=== PATIENT | female | born 1980 | race Caucasian/White ===

== ENCOUNTER → 2020-08-19 09:08 | Outpatient (BNVA) | payer OTHER, SELFPAY | PROVIDERS: PCP Internal Medicine; Referring Provider Internal Medicine; Visit Provider Dietitian, Registered | DX: Z76.89 Persons encountering health services in other specified circumstances (principal) ==

== ENCOUNTER → 2020-08-30 10:35 | Outpatient (BNVA) | payer OTHER, SELFPAY | PROVIDERS: PCP Internal Medicine; Visit Provider Anesthesiology | DX: Z76.89 Persons encountering health services in other specified circumstances (principal) ==

== ENCOUNTER 2020-09-02 11:26 | Emergency (ER) | payer OTHER, SELFPAY ==
--- NOTE | 2020-09-02 13:38 | ED_ITS ---
HPI - Abdominal Pain General Chief Complaint: Abdominal Pain Stated Complaint: abd pain Time Seen by Provider: 09/02/20 13:38 Source: patient Mode of arrival: ambulatory Limitations: no limitations History of Present Illness HPI narrative: 40 y/o female with history of obesity and hyperlipidemia presenting with acute onset of right sided abdominal pain that started last night as she was getting ready to go to bed. It is sharp in nature, starts in RUQ and radiates to her entire right side of her abdomen. Worse with movement and palpation. Admits to nausea but no vomiting, diarrhea, fever, chills, urinary symptoms. No sick contacts. MD elicited complaint: abdominal pain Pertinent past history: none Onset (ago): day(s) (1) Pain Consistency: constant Location: RUQ and RLQ Severity: moderate Pain scale (0-10): 8 Quality: stabbing and sharp Radiation: RLQ Exacerbating factors: movement Relieving factors: nothing Associated symptoms: nausea Related Data Date of Last Menstrual Period: 08/24/20 Patient : No Home Medications Medication Instructions Recorded Confirmed simvastatin 10 mg tablet 10 mg PO DAILY 08/30/20 Previous Rx's Medication Instructions Recorded famotidine 40 mg tablet 40 mg PO BID 30 Days #60 tab 08/06/20 Allergies Allergy/AdvReac Type Severity Reaction Status Date / Time Penicillins Allergy Mild HIVES Verified 09/02/20 15:04 gabapentin Allergy Unknown stomach Verified 05/31/20 00:00 upset Sulfa (Sulfonamide Allergy Unknown hives Verified 05/31/20 00:00 Antibiotics) Hydrocodone-Acetaminophen Allergy Unknown Unknown Uncoded 08/30/20 10:59 Review of Systems Review of Systems Constitutional: No Fever, No Chills ENT/Mouth: No sore throat, No Rhinorrhea, No Swallowing Difficulty Eyes: No Eye Pain, No Swelling, No Redness Cardiovascular: No Chest Pain, No SOB, No Orthopnea, No Edema Respiratory: No Cough, No Sputum, No Wheezing, No dyspnea Gastrointestinal: + Nausea, No Vomiting, No Diarrhea, + abdominal Pain, No Hematochezia, No Melena Genitourinary: No Dysuria, No Urinary Frequency, No Hematuria Musculoskeletal: No joint pain, No Myalgias Skin: No Skin Lesions, No rash Neuro: No Weakness, No Numbness, No Dizziness, No Headache Psych: + Anxiety/Panic, No Depression Heme/Lymph: No Bruising, No Lymphadenopathy Endocrine: No Polyuria, No Polydipsia Physical Exam Vital Signs: Vital Signs: Vital Signs Temp Pulse Resp BP Pulse Ox 09/02/20 15:07 79 15 115/65 98 09/02/20 14:00 86 15 130/74 09/02/20 13:55 97.6 F 88 14 130/74 96 Body Mass Index 44.5 Appearance: Alert. Oriented X3. No acute distress, appears uncomfortable. Speaking in full sentences. Eyes: Pupils equal, round and reactive to light. ENT: Pharynx normal. Neck: Normal inspection. Neck supple. CVS: Normal heart rate and rhythm. Pulses normal. Respiratory: No respiratory distress. Breath sounds normal. Abdomen: obese, soft, RUQ tenderness with rebound as well as RLQ tenderness to deep palpation with guarding. +BS x4. Skin: Skin warm and dry. Normal skin color. Normal skin turgor. No rashes. Extremities: No lower extremity edema. Neuro: Oriented X 3. No motor deficit. No sensory deficit. Course Course Course Narrative: 40 y/o female here with right sided abd pain. Concern for cholecystitis, biliary colic, appendicitis, colitis. Doubt ectopic , bowel obstruction, bowel perforation. Lab and CT scan pending. Patient reports pain 8/10 but declining morphine at this time. Accepting to Toradol and IVF. Reevaluation(s) Reevaluation #1: Patient continues to report 8/[address] scan shows stable right sided ovarian cyst 7.9x4.9x4.5cm. Given continued pain and concern for possible torsion, will get pelvic U/S with doppler. She has an outpatient U/S appointment with her [employer] [facility]ENDANT tomorrow at [facility] with plan for cyst removal in October 2020. Patient agreeable to U/S now. MDM - Abdominal Pain Differential Diagnosis Differential diagnosis: Likely abdominal pain, acute appendicitis, calculus of kidney, diverticulitis, endometriosis, gastroenteritis, gastritis, ovarian cyst, pancreatitis, peptic ulcer disease, renal colic and small bowel obstruction Lab Data Result diagrams: 09/02/20 14:15 09/02/20 14:15 Labs: Lab Results 09/02/20 09/02/20 09/02/20 Range/Units 14:15 14:15 14:15 WBC 7.6 (4.8-10.8) X10*3/uL RBC 4.49 (4.20-5.50) X10*6/uL Hgb 11.5 L (12.0-16.0) g/dl Hct 37.3 (37-47) % MCV 83.1 (80-98) fL MCH 25.6 L (27.0-33.0) pg MCHC 30.8 L (31.0-35.0) g/dl RDW 14.5 (11.0-16.0) % Plt Count 270 (160-400) X10*3/uL MPV 11.1 (9.4-12.3) fL Immature Gran % (Auto) 0.3 (0.0-0.4) % Neut % (Auto) 68.9 (45-73) % Lymph % (Auto) 21.8 (20-40) % Miller % (Auto) 6.6 (2-11) % Eos % (Auto) 2.1 (0-4) % Baso % (Auto) 0.3 (0-2) % Lymph # (Auto) 1.7 (1.2-4.9) X10*3/uL Miller # (Auto) 0.5 (0.1-1.2) X10*3/uL Eos # (Auto) 0.2 (0.0-0.4) X10*3/uL Baso # (Auto) 0.0 (0.0-0.2) X10*3/uL Abs Immat Gran (auto) 0.02 (0.00-0.03) X10*3/uL Absolute Neuts (auto) 5.2 (2.0-8.3) X10*3/uL Absolute Nucleated RBC 0.000 (0.0-0.012) X10*3/uL Nucleated RBC % (auto) 0.0 (0.0-0.2) /100WBC Sodium 140 (135-145) mmol/L Potassium 4.2 (3.3-5.1) mmol/l Chloride 103 (96-108) mmol/L Carbon Dioxide 29 (22-29) mmol/L Anion Gap 12 (12-20) BUN 8 L (9-16) mg/dL Creatinine 0.61 (0.5-1.4) mg/dL Estim Creat Clear Calc 134.2 Estimated GFR > 60 Random Glucose 77 (60-115) mg/dL Lactic Acid 0.8 (0.5-2.0) mmol/L Calcium 8.7 (8.4-10.2) mg/dL Magnesium 2.0 (1.6-2.6) mg/dL Total Bilirubin 0.5 (0.0-1.0) mg/dL Direct Bilirubin 0.2 (0.0-0.5) mg/dL AST 17 (5-31) U/L ALT 25 (0-31) U/L Alkaline Phosphatase 124 H (39-117) U/L Total Protein 7.2 (6.5-8.0) g/dL Albumin 4.1 (3.5-5.0) g/dL Lipase 6 L (8-78) U/L Beta HCG, Quant < 2 mIU/mL Urine Color Urine Appearance Urine pH (5.0-8.0) Ur Specific Cope (1.005-1.025) Urine Protein (NEG-TRACE) MG/DL Urine Glucose (UA) (NEG) MG/DL Urine Ketones (NEG) MG/DL Urine Blood (NEG) Urine Nitrite (NEG) Ur Leukocyte Esterase (NEG) 09/02/20 Range/Units 16:50 WBC (4.8-10.8) X10*3/uL RBC (4.20-5.50) X10*6/uL Hgb (12.0-16.0) g/dl Hct (37-47) % MCV (80-98) fL MCH (27.0-33.0) pg MCHC (31.0-35.0) g/dl RDW (11.0-16.0) % Plt Count (160-400) X10*3/uL MPV (9.4-12.3) fL Immature Gran % (Auto) (0.0-0.4) % Neut % (Auto) (45-73) % Lymph % (Auto) (20-40) % Miller % (Auto) (2-11) % Eos % (Auto) (0-4) % Baso % (Auto) (0-2) % Lymph # (Auto) (1.2-4.9) X10*3/uL Miller # (Auto) (0.1-1.2) X10*3/uL Eos # (Auto) (0.0-0.4) X10*3/uL Baso # (Auto) (0.0-0.2) X10*3/uL Abs Immat Gran (auto) (0.00-0.03) X10*3/uL Absolute Neuts (auto) (2.0-8.3) X10*3/uL Absolute Nucleated RBC (0.0-0.012) X10*3/uL Nucleated RBC % (auto) (0.0-0.2) /100WBC Sodium (135-145) mmol/L Potassium (3.3-5.1) mmol/l Chloride (96-108) mmol/L Carbon Dioxide (22-29) mmol/L Anion Gap (12-20) BUN (9-16) mg/dL Creatinine (0.5-1.4) mg/dL Estim Creat Clear Calc Estimated GFR Random Glucose (60-115) mg/dL Lactic Acid (0.5-2.0) mmol/L Calcium (8.4-10.2) mg/dL Magnesium (1.6-2.6) mg/dL Total Bilirubin (0.0-1.0) mg/dL Direct Bilirubin (0.0-0.5) mg/dL AST (5-31) U/L ALT (0-31) U/L Alkaline Phosphatase (39-117) U/L Total Protein (6.5-8.0) g/dL Albumin (3.5-5.0) g/dL Lipase (8-78) U/L Beta HCG, Quant mIU/mL Urine Color YELLOW Urine Appearance HAZY Urine pH 6.0 (5.0-8.0) Ur Specific Cope <= 1.005 (1.005-1.025) Urine Protein NEG (NEG-TRACE) MG/DL Urine Glucose (UA) NEG (NEG) MG/DL Urine Ketones NEG (NEG) MG/DL Urine Blood NEG (NEG) Urine Nitrite NEG (NEG) Ur Leukocyte Esterase TRACE H (NEG) Discharge Plan Discharge Prescriptions: No Action famotidine 40 mg tablet 40 mg PO BID 30 Days Qty: 60 RF: 1 [facility] Past Medical History Medical History High cholesterol Date of Last Menstrual Period: 08/24/20 Social History Social History Smoking Status: Never smoker Use of substances other than those prescribed or required for medical reasons: No Advance Directives: No Advance Directives Information Provided: No
--- NOTE | 2020-09-02 13:48 | CT_ITS ---
EXAMINATION: CT ABDOMEN AND PELVIS WITH CONTRAST CLINICAL INFORMATION: Right-sided abdominal pain. COMPARISON: CT scan abdomen pelvis 04/02/2020 TECHNIQUE: Multidetector volumetric images were obtained from the superior aspect of the liver through the pubic symphysis following administration 85 mL ofOmnipaque 350 intravenous contrast. Sagittal and coronal reformatted images were obtained on the technologist's workstation. Oral contrast: No This CT examination was performed using dose optimization techniques as appropriate, variously including the following: *Automated exposure control *Adjustment of mA and/or kV according to patient size (this includes techniques or standardized protocols for targeted exams where dose is matched to indication/reason for exam; i.e. extremities or head) *Use of iterative reconstruction technique DLP: 996 mGy-cm FINDINGS: LUNG BASES: The visualized lung bases are unremarkable. LIVER, GALLBLADDER, AND BILIARY TREE: There is no focal liver lesion or intrahepatic bile duct dilatation. The right lobe of liver measures 18 cm superior inferior. The gallbladder is unremarkable with no evidence of radiopaque gallstones, gallbladder wall thickening, or obvious pericholecystic inflammatory changes. PANCREAS: Unremarkable. SPLEEN: Unremarkable. ADRENAL GLANDS: Unremarkable. KIDNEYS AND URETERS: The kidneys are normal in size, shape, and attenuation. No hydronephrosis, hydroureter, or calculi seen. No perinephric stranding. BLADDER: Unremarkable. GASTROINTESTINAL TRACT: There are scattered diverticula throughout the colon. The diverticula are most numerous at the sigmoid colon. There is no diverticulitis. There is no bowel wall thickening /edema. There is no bowel obstruction. There is a moderate volume of stool in the colon. The appendix is normal . The small bowel loops are unremarkable. The stomach is normal. There is no hiatal hernia. ABDOMINAL WALL: No significant hernia is appreciated. LYMPH NODES: Normal. VASCULAR: Unremarkable. PELVIC VISCERA: Uterus is anteverted. There is a right adnexal cyst measuring 7.6 x 4.9 x 4.5 cm. This is similar to prior CAT scan of abdomen pelvis of 04/02/2020. There is no calcification or evidence of solid mass. No inflammation of the adnexa. No fluid in the cul-de-sac. OSSEOUS STRUCTURES: Unremarkable. CT/CT abdomen pelvis w con IMPRESSION: 1. Stable right adnexal cyst unchanged since CAT scan 04/02/2020. 2. Diverticulosis of the colon. There is no acute abnormality of the bowel.
[2020-09-02 13:55] VITALS: BP 130/74; PULSE 88; RESP 14; TEMP 36.4; O2SAT 96
[2020-09-02 14:00] VITALS: BP 130/74; PULSE 86; RESP 15; BMI 44.5
[2020-09-02] MEDS: 0.9 % Sodium Chloride 1,000 ML 999 ML IVCONT (14:17)
[2020-09-02 14:25] LABS: MANUAL DIFF FLAG NO
[2020-09-02] MEDS: ondansetron HCL 4 MG/2 ML VIAL IVPUSH (14:26)
[2020-09-02 14:28] LABS: Basophils Percent Auto 0.3 % (0-2); Eosinophils Absolute Auto 0.2 X10*3/uL (0.0-0.4); Eosinophils Percent Auto 2.1 % (0-4); Hematocrit 37.3 % (37-47); Hemoglobin 11.5 g/dl (12.0-16.0); Imm Gran Abs Auto 0.02 X10*3/uL (0.00-0.03); Imm Gran Pct Auto 0.3 % (0.0-0.4); Lymphocytes Absolute Auto 1.7 X10*3/uL (1.2-4.9); Lymphocytes Percent Auto 21.8 % (20-40); Mean Corpuscular HGB Conc 30.8 g/dl (31.0-35.0); Mean Corpuscular Hemoglobin 25.6 pg (27.0-33.0); Mean Corpuscular Volume 83.1 fL (80-98); Mean Platelet Volume 11.1 fL (9.4-12.3); Monocytes Absolute Auto 0.5 X10*3/uL (0.1-1.2); Monocytes Percent Auto 6.6 % (2-11); Neutrophils Absolute Auto 5.2 X10*3/uL (2.0-8.3); Neutrophils Percent Auto 68.9 % (45-73); Platelet Count 270 X10*3/uL (160-400); Red Blood Count 4.49 X10*6/uL (4.20-5.50); Red Cell Distribution Width 14.5 % (11.0-16.0); White Blood Count 7.6 X10*3/uL (4.8-10.8)
[2020-09-02] MEDS: Ketorolac Tromethamine 30 MG/ML VIAL IVPUSH (14:38)
[2020-09-02 14:42] LABS: Lactic Acid 0.8 mmol/L (0.5-2.0)
[2020-09-02 14:48] LABS: Alanine Aminotransferase 25 U/L (0-31); Albumin Level 4.1 g/dL (3.5-5.0); Alkaline Phosphatase 124 U/L (39-117); Anion Gap 12 (12-20); Aspartate Amino Transferase 17 U/L (5-31); Bilirubin Direct 0.2 mg/dL (0.0-0.5); Bilirubin Total 0.5 mg/dL (0.0-1.0); Blood Urea Nitrogen 8 mg/dL (9-16); Calcium 8.7 mg/dL (8.4-10.2); Carbon Dioxide 29 mmol/L (22-29); Chloride 103 mmol/L (96-108); Creatinine Clr Calc Pharmacy 134.2; Estimated Glomerular Filt Rate > 60; Glucose Random 77 mg/dL (60-115); Lipase 6 U/L (8-78); Potassium 4.2 mmol/l (3.3-5.1); Sodium 140 mmol/L (135-145); Total Protein 7.2 g/dL (6.5-8.0)
[2020-09-02 14:54] LABS: HCG Quantitative < 2 mIU/mL
[2020-09-02 15:07] VITALS: BP 115/65; PULSE 79; RESP 15; O2SAT 98
[2020-09-02] MEDS: iohexoL 350 MG/ML 100 ML INFUS..BTL IV (16:07)
--- NOTE | 2020-09-02 16:48 | US_ITS ---
EXAMINATION: ULTRASOUND PELVIC, COMPLETE CLINICAL INFORMATION: 40-year-old female with ovarian cyst seen on prior CT COMPARISON: CT of the abdomen and pelvis 09/02/2020 and MRI of the pelvis 01/01/2020 TECHNIQUE: Transabdominal and transvaginal imaging was performed. Transvaginal imaging was performed for further evaluation of the endometrium and adnexa. Color and spectral Doppler imaging of both ovaries was performed. FINDINGS: The uterus is of normal size and echogenicity measuring 9.6 x 5 x 4.7 cm. There is a small hypoechoic myometrial fibroid in the right upper uterus that measures 1 x 0.6 x 0.7 cm there are nabothian cysts within the cervix. A regular homogeneous endometrium is identified measuring 1.3 cm. Both ovaries are of normal size and echogenicity. The right ovary measures 3.6 x 2 x 1.8 cm for a volume of 7 mL. Directly adjacent to the right ovary is a simple appearing cyst that measures 5.6 x 4.8 x 5.3 cm. The left ovary measures 3.1 x 1.4 x 1.8 cm for a volume of 4 mL. PELVIC DOPPLER: Normal color and spectral Doppler flow is demonstrated in the bilateral ovaries with arterial and venous waveforms identified. There is no pelvic free fluid. US/US pelvic ovarian doppler IMPRESSION: 5.6 x 4.8 x 5.3 cm simple appearing cyst adjacent to the right ovary, that may be ovarian or paraovarian in nature. Findings are overall similar to the previous CT and MRI of the pelvis. Normal appearance of the bilateral ovaries with intact arterial and venous flow. 1 cm myometrial fibroid in the right upper uterus.
[2020-09-02 17:05] LABS: Glucose Urine UA NEG (NEG); Leukocyte Esterase Urine TRACE (NEG); Nitrite Urine NEG (NEG); Specific Gravity - Urine <= 1.005 (1.005-1.025); Urine Blood NEG (NEG); Urine Ketones NEG (NEG); Urine Protein NEG (NEG-TRACE)
[2020-09-02 17:08] VITALS: BP 110/61; PULSE 78; RESP 15; O2SAT 98
[2020-09-02 17:08] LABS: Appearance Urine HAZY; Color Urine YELLOW
--- NOTE | 2020-09-02 17:12 | US_ITS ---
EXAMINATION: ULTRASOUND PELVIC, COMPLETE CLINICAL INFORMATION: 40-year-old female with ovarian cyst seen on prior CT COMPARISON: CT of the abdomen and pelvis 09/02/2020 and MRI of the pelvis 01/01/2020 TECHNIQUE: Transabdominal and transvaginal imaging was performed. Transvaginal imaging was performed for further evaluation of the endometrium and adnexa. Color and spectral Doppler imaging of both ovaries was performed. FINDINGS: The uterus is of normal size and echogenicity measuring 9.6 x 5 x 4.7 cm. There is a small hypoechoic myometrial fibroid in the right upper uterus that measures 1 x 0.6 x 0.7 cm there are nabothian cysts within the cervix. A regular homogeneous endometrium is identified measuring 1.3 cm. Both ovaries are of normal size and echogenicity. The right ovary measures 3.6 x 2 x 1.8 cm for a volume of 7 mL. Directly adjacent to the right ovary is a simple appearing cyst that measures 5.6 x 4.8 x 5.3 cm. The left ovary measures 3.1 x 1.4 x 1.8 cm for a volume of 4 mL. PELVIC DOPPLER: Normal color and spectral Doppler flow is demonstrated in the bilateral ovaries with arterial and venous waveforms identified. There is no pelvic free fluid. US/US transvaginal IMPRESSION: 5.6 x 4.8 x 5.3 cm simple appearing cyst adjacent to the right ovary, that may be ovarian or paraovarian in nature. Findings are overall similar to the previous CT and MRI of the pelvis. Normal appearance of the bilateral ovaries with intact arterial and venous flow. 1 cm myometrial fibroid in the right upper uterus.
[2020-09-02 18:12] LABS: RBC Urine 0-2 /HPF (0); Squamous Epithelial Cell Urine 1+ /LPF
[2020-09-02 18:42] VITALS: BP 109/59; PULSE 69; RESP 14
--- NOTE | 2020-09-02 18:44 | PC.NURSE ---
RE EVALUATED BY MARCOS VILLARREAL
[2020-09-02] MEDS: Ketorolac Tromethamine 60 MG/2 ML VIAL IM (19:09)
== END 2020-09-02 19:35 | disposition home or self-care (01) ==
PROVIDERS: Physician Assistant; Emergency Provider Emergency Medicine; PCP Internal Medicine
DX: R10.11 Right upper quadrant pain (principal); R10.2 Pelvic and perineal pain
CPT/HCPCS: 36415; 74177; 76830; 76856; 80048; 80076; 81001; 81003; 83605; 83690; 83735; 84702; 85025; 87086; 87147; 93975; 96361; 96372; 96374; 96375; 99284; J1885; J2405; Q9967

== ENCOUNTER → 2020-09-17 14:16 | Outpatient (BNVA) | payer OTHER, SELFPAY | PROVIDERS: PCP Internal Medicine; Referring Provider Internal Medicine; Visit Provider Internal Medicine Gastroenterology | DX: R10.33 Periumbilical pain (principal) | CPT/HCPCS: 99212 ==

== ENCOUNTER 2020-10-15 09:29 | Outpatient (REF) | payer OTHER, SELFPAY ==
--- NOTE | 2020-10-15 09:33 | MR_ITS ---
EXAMINATION: MR ENTEROGRAPHY CLINICAL INFORMATION: Check for Crohn's or other enteropathy. COMPARISON: Previous CT of the abdomen and pelvis August 2020 and MRI of the pelvis December 2019 TECHNIQUE: Sagittal, axial and coronal sequences through the abdomen and pelvis following 3 bottles of 17 ounce oral Breeza contrast and 10 mL intravenous Gadavist contrast. FINDINGS: The lung bases are clear. There is mild fatty infiltration of the liver. There is a 7 mm lesion high in the right lobe of the liver. This is low signal on T1 and high signal on T2-weighted sequences and demonstrates homogeneous enhancement. This may represent a small hemangioma. No other focal liver lesion is seen. The liver is normal in size and shape. The gallbladder is normal. There is no intrahepatic or extrahepatic biliary duct dilatation. The pancreas is normal. The spleen is normal. The adrenal glands and kidneys are normal. The bladder is normal. The stomach is well distended and is normal appearing. Small bowel is normal appearing. No evidence of inflammatory bowel disease is seen. No wall thickening, dilatation, wall enhancement, abnormal vascularity, stricture, or fistula is seen There is mild diverticulosis of the colon. The colon is otherwise normal appearing. The rectum is normal appearing. The appendix is not identified. There is a 5.3 x 7.5 x 4.8 cm simple right pelvic cyst probably representing an adnexal cyst. This is similar to previous CT of the abdomen and pelvis August 2020. This is slightly increased in size from previous pelvic MRI December 2019 when this measured 3.5 x 5.8 x 4.4 cm. This appears to represent a simple cyst with no wall thickening, mural nodule or enhancement. 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 Left adnexa is unremarkable. There is increased sclerosis at the bilateral sacroiliac joints similar to previous exams. Review at bone windows is otherwise unremarkable. MR/MR abdomen wo/w con IMPRESSION: Normal-appearing small bowel. Mild diverticulosis of the colon. 7 mm enhancing lesion high in the right lobe of the liver probably representing a hemangioma. 5.3 x 7.5 x 4.8 cm right adnexal cyst. Again, this is slightly increased in size from prior MRI December 2019.
== END 2020-10-15 09:30 | disposition home or self-care (01) ==
LOC: HO.MRI 09:29
PROVIDERS: Visit Provider Internal Medicine Gastroenterology
DX: R10.33 Periumbilical pain (principal)
CPT/HCPCS: 72197; 74183; A9585

== ENCOUNTER 2020-10-26 09:45 | Outpatient (REF) | payer OTHER, SELFPAY ==
[2020-10-26 11:20] LABS: Alanine Aminotransferase 21 U/L (0-31); Albumin Level 4.1 g/dL (3.5-5.0); Alkaline Phosphatase 123 U/L (39-117); Aspartate Amino Transferase 15 U/L (5-31); Bilirubin Direct < 0.2 mg/dL (0.0-0.5); Bilirubin Total 0.3 mg/dL (0.0-1.0); Cholesterol 209 mg/dL; HDL Cholesterol 43 mg/dL; LDL Cholesterol Calculated 136 mg/dl; Total Protein 7.4 g/dL (6.5-8.0); Triglycerides 151 mg/dL
[2020-10-26 11:21] LABS: C Reactive Protein 1.72 mg/dL (< or = 0.50)
[2020-10-26 11:37] LABS: Erythrocyte Sedimentation Rate 31 MM/HR (0-20)
[2020-10-28 16:23] LABS: Transglutaminase Ab IgG 5 U/mL; Transglutaminase IgA 1 U/mL
[2020-11-05 17:58] LABS: Histamine Plasma 3.3 ng/mL (< OR = 1.8)
== END 2020-10-26 09:46 | disposition home or self-care (01) ==
LOC: HO.LAB 09:45
PROVIDERS: Absent Provider Internal Medicine Gastroenterology; PCP Internal Medicine; Visit Provider Internal Medicine
DX: R10.33 Periumbilical pain (principal); E78.9 Disorder of lipoprotein metabolism, unspecified; K76.0 Fatty (change of) liver, not elsewhere classified
CPT/HCPCS: 36415; 80061; 80076; 83088; 83516; 83520; 85652; 86140

== ENCOUNTER → 2020-11-05 13:52 | Outpatient (BNVA) | payer OTHER, SELFPAY | PROVIDERS: PCP Internal Medicine; Referring Provider Internal Medicine; Visit Provider Dietitian, Registered | DX: Z76.89 Persons encountering health services in other specified circumstances (principal) ==

== ENCOUNTER 2020-11-08 18:05 | Outpatient (REF) | payer OTHER, SELFPAY ==
[2020-11-14 18:28] LABS: Calprotectin, Fecal 9 mcg/g
== END 2020-11-08 18:06 | disposition home or self-care (01) ==
LOC: HO.LNP 18:05
PROVIDERS: Visit Provider Internal Medicine Gastroenterology
DX: R10.33 Periumbilical pain (principal)
CPT/HCPCS: 83993

== ENCOUNTER 2020-11-15 13:45 | Outpatient (REF) | payer OTHER, SELFPAY | END 2020-11-15 13:46 | disposition home or self-care (01) | LOC: HO.LAB 13:45 | PROVIDERS: PCP Internal Medicine; Visit Provider Internal Medicine Gastroenterology | DX: D89.40 Mast cell activation, unspecified (principal) | CPT/HCPCS: 36415; 82785; 86003 ==

== ENCOUNTER 2020-11-17 15:41 | Outpatient (REF) | payer OTHER, SELFPAY ==
[2020-11-26 13:22] LABS: Creatinine 24Hr Urine 1166 mg/24 h; N-Methylhistamine, 24Hr Urine 96 mcg/g Cr (30-200); Total Volume 1850 mL
== END 2020-11-17 15:42 | disposition home or self-care (01) ==
LOC: HO.LNP 15:41
PROVIDERS: Visit Provider Internal Medicine Gastroenterology
DX: R10.33 Periumbilical pain (principal); D89.40 Mast cell activation, unspecified
CPT/HCPCS: 81050; 82542

== ENCOUNTER → 2020-12-20 15:01 | Outpatient (BNVA) | payer OTHER, SELFPAY | PROVIDERS: PCP Internal Medicine; Visit Provider Anesthesiology | DX: M54.5 Low back pain (principal); M54.2 Cervicalgia; M79.7 Fibromyalgia | CPT/HCPCS: Q3014 ==

== ENCOUNTER 2020-12-28 14:10 | Outpatient (REF) | payer OTHER, SELFPAY ==
--- NOTE | ~2020-12-28 | XR_ITS ---
EXAMINATION: CERVICAL AND LUMBAR SPINE. CLINICAL INFORMATION: Fibromyalgia. COMPARISON: Lumbar spine 12/16/2019 TECHNIQUE: 3 views lumbar spine and 6 view cervical spine. 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 There is maintained lumbar lordosis with vertebral heights and alignment is normal. No visible acute fracture or dislocation seen. The SI joints are symmetrical with mild sclerosis along the iliac aspect. No lytic process seen. There is mild deformity of the sacrococcygeal junction likely due to old injury Cervical spine There is mild straightening of cervical lordosis. The vertebral heights and alignment is stable. No visible acute fracture, dislocation or subluxation seen. The neural foramina are widely patent bilaterally and oblique views. The prevertebral and paravertebral soft tissues are normal. XR/XR lumbar spine 2-3V IMPRESSION: Mild straightening of lumbar lordosis with segmentation anomaly resulting 6 lumbar vertebrae. No acute fracture, dislocation or lytic process seen. However there is mild sclerosis along bilateral SI joints along the ileum side. Question bilateral sacroiliitis. Moderate straightening of cervical lordosis with no visible vertebral fracture or dislocation seen.
--- NOTE | ~2020-12-28 | XR_ITS ---
EXAMINATION: CERVICAL AND LUMBAR SPINE. CLINICAL INFORMATION: Fibromyalgia. COMPARISON: Lumbar spine 12/16/2019 TECHNIQUE: 3 views lumbar spine and 6 view cervical spine. 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 There is maintained lumbar lordosis with vertebral heights and alignment is normal. No visible acute fracture or dislocation seen. The SI joints are symmetrical with mild sclerosis along the iliac aspect. No lytic process seen. There is mild deformity of the sacrococcygeal junction likely due to old injury Cervical spine There is mild straightening of cervical lordosis. The vertebral heights and alignment is stable. No visible acute fracture, dislocation or subluxation seen. The neural foramina are widely patent bilaterally and oblique views. The prevertebral and paravertebral soft tissues are normal. XR/XR cervical spine 4V IMPRESSION: Mild straightening of lumbar lordosis with segmentation anomaly resulting 6 lumbar vertebrae. No acute fracture, dislocation or lytic process seen. However there is mild sclerosis along bilateral SI joints along the ileum side. Question bilateral sacroiliitis. Moderate straightening of cervical lordosis with no visible vertebral fracture or dislocation seen.
== END 2020-12-28 14:11 | disposition home or self-care (01) ==
LOC: HO.XRAY 14:10
PROVIDERS: PCP Internal Medicine; Visit Provider Anesthesiology
DX: M79.7 Fibromyalgia (principal); M54.5 Low back pain; M54.2 Cervicalgia
CPT/HCPCS: 72050; 72100; 99212

== ENCOUNTER → 2021-01-04 08:47 | Outpatient (BNVA) | payer OTHER, SELFPAY | PROVIDERS: PCP Internal Medicine; Visit Provider Internal Medicine Gastroenterology | DX: Z13.89 Encounter for screening for other disorder (principal) | CPT/HCPCS: Q3014 ==

== ENCOUNTER → 2021-01-07 12:52 | Outpatient (BNVA) | payer OTHER, SELFPAY | PROVIDERS: PCP Internal Medicine; Visit Provider Dietitian, Registered ==

== ENCOUNTER 2021-02-03 12:19 | Day surgery (SDC) | payer OTHER, SELFPAY ==
[2021-01-31 09:25] VITALS: BMI 43.3
--- NOTE | 2021-02-02 10:23 | P.CONAN_ITS ---
HPI - Anesthesia Eval Consult details Narrative: 40yo F for Upper Endoscopy [facility] Active Problems Active Problems: All Active Problems (Updated 01/04/21 @ 09:58 by Luan Tran MD) Chronic gastroesophageal reflux disease (Acute) Polyarthralgia (Acute) Fibromyalgia (Acute) Cervicalgia (Acute) Low back pain (Acute) LFT elevation (Acute) Hoarseness of voice (Acute) Itching of ear (Acute) Mast cell activation (Acute) Lipid disorder (Acute) Liver hemangioma (Acute) Benign positional vertigo (Acute) Fatty liver (Acute) Sacroiliac (ligament) sprain (Acute) Periumbilical abdominal pain (Acute) Breast screening (Acute) Body mass index [BMI]40.0-44.9, adult (Acute) Pure hypercholesterolemia, unspecified (Acute) Past Medical History Medical History Benign positional vertigo Cervicalgia Fatty liver Fibromyalgia High cholesterol Lipid disorder Liver hemangioma Low back pain Family History Family History Father Diabetes mellitus Pacemaker Mother Diabetes mellitus Colon cancer Fibromyalgia Maternal Grandmother No problems noted. Paternal Grandmother Diabetes mellitus Pacemaker Paternal Grandfather Diabetes mellitus Myocardial infarction Maternal Aunt Breast cancer Brother No problems noted. Brother No problems noted. Brother No problems noted. Brother No problems noted. Sister No problems noted. Sister No problems noted. Son No problems noted. Daughter No problems noted. Surgical History Surgical History History of carpal tunnel surgery of left wrist History of carpal tunnel surgery of right wrist History of esophagogastroduodenoscopy (EGD) History of loop electrical excision procedure (LEEP) History of wisdom tooth extraction Social History Social History (Updated 01/04/21 @ 08:49 by SELENA Louise) Household Members: Spouse and Children Alcohol intake: current Alcohol intake frequency: does not drink Smoking Status: Never smoker Meds Allergies Allergy/AdvReac Type Severity Reaction Status Date / Time gabapentin Allergy Intermediate stomach Verified 01/04/21 08:48 upset Sulfa (Sulfonamide Allergy Intermediate hives Verified 01/04/21 08:48 Antibiotics) Penicillins Allergy Mild HIVES Verified 01/04/21 08:48 Hydrocodone-Acetaminophen Allergy Intermediate Rash Uncoded 12/28/20 14:56 Exam Exam Date and Time: February 02, 2021 1023 Height,Weight and Vital Signs: Height 5 ft Weight 100.698 kg Assessment and Plan Assessment Anesthesia Assessment: Chart Reviewed
[2021-02-03 12:52] VITALS: BP 113/74; PULSE 78; RESP 16; TEMP 36.6; O2SAT 99; BMI 43.7
[2021-02-03 13:03] LABS: UPreg QC Valid YES; Urine Pregnancy NEGATIVE (NEGATIVE)
[2021-02-03] MEDS: Lactated Ringers 1,000 ML 100 ML IVCONT (13:11)
--- NOTE | 2021-02-03 13:42 | P.HPSUR_ITS ---
Pre-Procedural Eval Section B Chief Complaint: GERD Relevant Family History (Specify if Yes): No Relevant Social History: None Present Medications: see Short Stay Collaborative assessment Medical History: Significant History (Benign positional vertigo Cervicalgia Fatty liver Fibromyalgia High cholesterol Lipid disorder Liver hemangioma Low back pain) History of Previous Operations: Relevant previous surgery/procedure and date(s) ( History of carpal tunnel surgery of left wrist History of carpal tunnel surgery of right wrist History of esophagogastroduodenoscopy (EGD) History of loop electrical excision procedure (LEEP) History of wisdom tooth extraction) Allergies: Allergies Allergy/AdvReac Type Severity Reaction Status Date / Time gabapentin Allergy Intermediate stomach Verified 01/04/21 08:48 upset Sulfa (Sulfonamide Allergy Intermediate hives Verified 01/04/21 08:48 Antibiotics) Penicillins Allergy Mild HIVES Verified 01/04/21 08:48 Hydrocodone-Acetaminophen Allergy Intermediate Rash Uncoded 12/28/20 14:56 Review of Systems Sugical H&P ROS: Negative: Constitution, Cardiovascular, Respiratory, Neurological, Psychiatric, Hem-Onc, Allergic/Immunologic, Gastrointestinal, Genitourinary, Musculoskeletal, Integumentary, Endocrine and Eyes/Ears/Nose/Thro at Exam Surgical H&P Exam: Normal: HEENT, Normal: Heart, Normal: Lungs, Normal: Extremities, Normal: Abdomen, Normal: Skin and Normal: Neurological Plan Diagnosis/Plan: Unchanged I have reviewed the history and physical and performed a pertinent physical examination on my patient. No changes have occurred unless specified.
--- NOTE | 2021-02-03 14:13 | PM.OP ---
Brief Operative Note Date of Service: 02/03/21 Pre-op diagnosis: GERD Post-op diagnosis: same Procedure: see op note Surgeon: Luan Tran MD Anesthesia: MAC Estimated blood loss (mL): 0 Condition: stable Disposition: PACU
--- NOTE | 2021-02-03 14:13 | W.PM.OPN ---
Operative Note Operative Note Date of Service: 02/03/21 Narrative: Procedure Description: EGD FLEXIBLE TRANSORAL UPPER GASTROINTESTINAL ENDOSCOPY UPPER ENDOSCOPY Consent: Indications for the procedure and potential complications of bleeding, perforation, reaction to medications and missed diagnosis were discussed with the patient and informed consent was obtained. Instrument: Olympus GIF H 190 J mid size upper endoscope Monitoring: Vital signs and clinical assessment, continuous EKG monitoring, Pulse oximetry, Carbon Dioxide monitoring and blood pressure monitoring were done throughout the procedure. Procedure: The patient was placed in the left lateral decubitis position and pre-procedure medications were administered and a bite block was placed. The endoscope was inserted into the mouth and advanced under direct vision to the third part of duodenum. A careful inspection was made as the upper endoscope was withdrawn including a retroflexed examination of the proximal stomach; Findings and interventions are described below. Findings: Larynx:normal Esophagus: GE junction at 38 cm, diaphragm hiatus at 38 cm, no varices or esophagitis. Bx taken from GEJ, and distal, proximal esophagus in different jars Stomach: Mild patchy gastric erythema. Biopsies were obtained. Grade 2 flap valve on retroflexed examination of the cardia. Duodenum: Normal bulb and descending duodenum, bx taken Intervention: Biopsies as noted above Impression/Findings: mild gastritis PLAN: cont with PPI since its helping and she has relief GERD precautions, avoid trigger foods, will give handouts
[2021-02-03 14:18] VITALS: BP 111/72; PULSE 90; RESP 16; TEMP 36.6; O2SAT 98
[2021-02-03 14:38] VITALS: BP 119/78; PULSE 81; RESP 16; TEMP 36.6; O2SAT 99
== END 2021-02-03 14:54 | disposition home or self-care (01) ==
PROVIDERS: Nurse Practitioner; PCP Internal Medicine; Visit Provider Internal Medicine Gastroenterology
PROC: 0DJ08ZZ Inspection of Upper Intestinal Tract, Via Natural or Artificial Opening Endoscopic (ICD-10-PCS; CPT 43235; principal; 2021-02-03 14:00)
DX: K21.9 Gastro-esophageal reflux disease without esophagitis (principal); K29.70 Gastritis, unspecified, without bleeding; Z88.0 Allergy status to penicillin; Z88.2 Allergy status to sulfonamides; Z88.6 Allergy status to analgesic agent; Z88.8 Allergy status to other drugs, medicaments and biological substances
CPT/HCPCS: 43239; 81025; 88305; 88342; J3010

== ENCOUNTER → 2021-02-23 14:57 | Outpatient (BNVA) | payer OTHER, SELFPAY | PROVIDERS: PCP Internal Medicine; Visit Provider Anesthesiology | DX: M54.5 Low back pain (principal); M54.2 Cervicalgia; M79.7 Fibromyalgia; Z79.899 Other long term (current) drug therapy | CPT/HCPCS: Q3014 ==

== ENCOUNTER 2021-02-25 10:39 | Outpatient (REF) | payer OTHER, SELFPAY ==
[2021-02-25 12:30] LABS: Alanine Aminotransferase 19 U/L (0-31); Albumin Level 4.2 g/dL (3.5-5.0); Alkaline Phosphatase 127 U/L (39-117); Aspartate Amino Transferase 14 U/L (5-31); Bilirubin Direct 0.2 mg/dL (0.0-0.5); Bilirubin Total 0.4 mg/dL (0.0-1.0); Cholesterol 214 mg/dL; HDL Cholesterol 44 mg/dL; LDL Cholesterol Calculated 144 mg/dl; Total Protein 7.5 g/dL (6.5-8.0); Triglycerides 133 mg/dL
== END 2021-02-25 10:40 | disposition home or self-care (01) ==
LOC: HO.LAB 10:39
PROVIDERS: PCP Internal Medicine; Visit Provider Internal Medicine
DX: E78.9 Disorder of lipoprotein metabolism, unspecified (principal)
CPT/HCPCS: 36415; 80061; 80076

== ENCOUNTER 2021-02-25 11:00 | Outpatient (RCR) | payer OTHER, SELFPAY ==
[2021-01-14 10:19] VITALS: BP 120/69; PULSE 85
--- NOTE | 2021-01-14 15:22 | MHC.PT.EP ---
[facility] [place] Office [place] Office [place] Office [address] Manjit Salamanca [address] [phone] F: [phone] F: [phone] F: [phone] F: [phone] Physical Therapy Plan of Care Date of Evaluation: 01/14/21 Date of Surgery: NA Diagnosis: CERVICAL AND LOW BACK PAIN Assessment: SARA PRESENTS WITH ONGOING NECK AND LOW BACK PAIN WITH INSIDIOUS ONSET WHICH WORSENS WITH STATIC POSITIONING AND LOW BACK PAIN RADIATES TO FOOT. UPON EXAM SHE PRESENTS WITH IMPAIRMENTS INCLUDING: DECREASED CERVICAL, LUMBAR AND LE ROM, DECREASED LE STRENGTH, ALTERED POSTURE AND POSITIONING, ALTERED SOFT TISSUE MOBILITY AND INCREASED PAIN. FUNCTIONAL LIMITATIONS INCLUDE DECREASED TOLERANCE TO LIFTING, BENDING, REACHING, PUSHING AND PULLING. SHE REPORTS DECREASED ABILITY TO PERFORM HOMEMAKING AND SELF CARE TASKS, DECREASED ABILITY TO PERFORM HOMEMAKING AND SELF CARE TASKS, DECREASED ABILITY TO PERFORM CHILDCARE, FITNESS AND RECREATIONAL TASKS. Frequency and Duration: The patient will be seen 2X WEEK FOR 5 WEEKS Short Term Goals: INITATE HEP AND SELF MANAGEMENT OF SYMPTOMS IN 2 VISITS [facility] Goals: FULL LUMBAR AND CERVICAL ROM IN 5 WEEKS WITHOUT PAIN FULL LE STRENGTH, EQUAL GRISELDA IN 5 WEEKS TO TOLERATE CHILDCARE TASKS AND HOMEMAKING TASKS WITHOUT EXCEPTION AND PAIN NO GREATER THAN 2/10 IN 5 WEEKS TO RETURN TO FITNESS AND RECREATIONAL ACTIVITIES WITHOUT PAIN GREATER THAN 2/10 IN 5 WEEKS Treatment Plan: Modalities to reduce pain, spasms and effusion. Manual therapy to restore motion and function. Therapeutic exercise to improve strength and flexibility. Neuromuscular re-education for posture and balance. Therapeutic activities to return to functional activities of daily living. Electronically signed by: MELLO SIFUENTES PT, DPT Please sign and return to therapist. Thank you for your referral.
--- NOTE | 2021-03-30 15:19 | MHC.PT.DC ---
[facility] [place] Office [place] Office [place] Office [address] Manjit Salamanca [address] [phone] F: [phone] F: [phone] F: [phone] F: [phone] Physical Therapy Discharge Report Diagnosis: CERVICAL AND LOW BACK PAIN Date of Surgery: NA Date of Evaluation: 01/14/21 Date of Discharge: 02/15/21 Treatments to Date: 8 Cancellations to Date: 0 No Shows to Date: 0 Discharge Status: Achieved Goals Improved Function Independent with HEP Discharge Summary: SARA STATES SHE IS CONFIDENT WITH HEP AND SELF MANAGEMENT OF SYMPTOMS. SHE IS DCed ON THIS DATE. Electronically signed by: Anisa Diaz PT, DPT Please sign and return to therapist. Thank you for your referral.
== END 2021-03-30 15:20 | disposition other institution (70) ==
LOC: HO.PT 11:00
PROVIDERS: PCP Internal Medicine; Visit Provider Anesthesiology
DX: M54.2 Cervicalgia (principal); M54.5 Low back pain
CPT/HCPCS: 97014; 97110; 97162

== ENCOUNTER 2021-03-16 14:30 | Outpatient (RCR) | payer OTHER, SELFPAY ==
--- NOTE | 2021-02-21 09:19 | MHC.PT.EP ---
[facility] [place] Office [place] Office [place] Office [address] Erica Salamanca [address] [phone] F: [phone] F: [phone] F: [phone] F: [phone] Physical Therapy Plan of Care Date of Evaluation: Date of Surgery: NA Diagnosis: BPPV Assessment: Jerri demonstrates s/s consistent with BPPV. Leander-Halpike is (+) for right posterior canalithiasis with negative testing in other canals. Re-testing was negative following Britni maneuver x 2. Functional limitations include decreased ability to perform walking, stair climbing and position changes at normal speed, she reports decreased ability to perform homemaking and work tasks, decreased ability to participate in community and recreational activities. Frequency and Duration: The patient will be seen 2 x week for 5 weeks Short Term Goals: 1. Pt will be (-) for nystagmus of reports of vertigo in all diagnostic directions B to resolutions of BPPV in 2 weeks [employer] Goals: 5 weeks: 1. I with HEP 2. Improve DGI to 20/24 3. Pt to be able to functionally move in all planes without provocation of dizziness and return to PLOF in 4 weeks 4. Pt to be educated on sx and indications to return to therapy when needed Treatment Plan: Modalities to reduce pain, spasms and effusion. Manual therapy to restore motion and function. Therapeutic exercise to improve strength and flexibility. Neuromuscular re-education for posture and balance. Therapeutic activities to return to functional activities of daily living. Electronically signed by: Anisa Diaz PT, DPT Please sign and return to therapist. Thank you for your referral.
--- NOTE | 2021-03-30 15:13 | MHC.PT.DC ---
[facility] [place] Office [place] Office [place] Office [address] Manjit Salamanca [address] [phone] F: [phone] F: [phone] F: [phone] F: [phone] Physical Therapy Discharge Report Diagnosis: BPPV Date of Surgery: NA Date of Evaluation: 02/18/21 Date of Discharge: 03/16/21 Treatments to Date: 3 Cancellations to Date: 0 No Shows to Date: 0 Discharge Status: Achieved Goals Improved Function Independent with HEP Discharge Summary: Jerri reports she had been feeling good for the last few days. She had one episode this morning brought on by looking down. She reports has been self treating at home and doing well with it. She was reassessed in [facility]. No nystagmus was was seen w/ testing or treatment, but reported of dizziness, head pressure , and nausea was noted. CRM x 1 followed by semont x 2 was done.She continued to report of dizziness in [facility]. She was advised to continue with self CRM at home and probably start vit D supplements due to persistent dizziness. Electronically signed by: Anisa Diaz PT, DPT Please sign and return to therapist. Thank you for your referral.
== END 2021-03-30 15:19 | disposition other institution (70) ==
LOC: HO.PT 14:30
PROVIDERS: PCP Internal Medicine; Visit Provider Psychiatry & Neurology Neurology
DX: R42 Dizziness and giddiness (principal)
CPT/HCPCS: 95992; 97140; 97161

== ENCOUNTER → 2021-03-22 08:39 | Outpatient (BNVA) | payer OTHER, SELFPAY | PROVIDERS: PCP Internal Medicine; Visit Provider Internal Medicine Gastroenterology | DX: R10.33 Periumbilical pain (principal); K21.9 Gastro-esophageal reflux disease without esophagitis | CPT/HCPCS: Q3014 ==

== ENCOUNTER → 2021-04-12 13:19 | Outpatient (BNVA) | payer OTHER, SELFPAY | PROVIDERS: PCP Internal Medicine; Visit Provider Dietitian, Registered | DX: E78.9 Disorder of lipoprotein metabolism, unspecified (principal); E78.00 Pure hypercholesterolemia, unspecified; Z68.41 Body mass index [BMI] 40.0-44.9, adult | CPT/HCPCS: 97803 ==

== ENCOUNTER 2021-04-14 13:03 | Outpatient (REF) | payer OTHER, SELFPAY ==
--- NOTE | ~2021-04-14 | CT_ITS ---
EXAMINATION: CT ENTEROGRAPHY ABDOMEN AND PELVIS WITH CONTRAST CLINICAL INFORMATION: Periumbilical pain COMPARISON: Previous CT of the abdomen and pelvis August 2020 and MR of the abdomen September 2020 TECHNIQUE: Study performed with oral VoLumen (1350 mL) and 480 mL of water to distend the abdomen. The patient was injected with 85 mL Omnipaque 350 intravenous contrast which was administered without adverse effect. Coronal and sagittal reformatted images were obtained at the technologist's workstation. This CT examination was performed using dose optimization techniques as appropriate, variously including the following: *Automated exposure control *Adjustment of mA and/or kV according to patient size (this includes techniques or standardized protocols for targeted exams where dose is matched to indication/reason for exam; i.e. extremities or head) *Use of iterative reconstruction technique DLP: 672 mGy-cm FINDINGS: GASTROINTESTINAL FINDINGS: Stomach: Well-distended and normal in appearance. Small intestine: Satisfactorily distended and normal in appearance. Large intestine: Well-distended and normal in appearance. No perirectal changes demonstrated. The appendix is normal. Additional findings: No abnormal enhancement of the vasa recta or significant mesenteric or retroperitoneal lymphadenopathy is seen. No abdominal abscess or fistulous tract demonstrated. ABDOMINAL AND PELVIC CT FINDINGS: Liver, gallbladder, biliary tract: Normal Pancreas: Normal Spleen: Normal Adrenal glands and kidneys: The kidneys are normal Ureters and bladder: Normal Lymphovascular structures: Normal The uterus and ovaries are normal. The previously identified right ovarian cyst is no longer seen. Bones: There is slight increased sclerosis along the iliac side of the bilateral sacroiliac joints probably representing osteitis contents ilei. This is unchanged. Lung bases: Normal CT/CT enterography IMPRESSION: Normal CT enterography exam.
[2021-04-14] MEDS: iohexoL 350 MG/ML 100 ML INFUS..BTL 85 ML IV (16:03)
== END 2021-04-14 13:04 | disposition home or self-care (01) ==
LOC: HO.CT 13:03
PROVIDERS: PCP Internal Medicine; Visit Provider Internal Medicine Gastroenterology
DX: R10.33 Periumbilical pain (principal)
CPT/HCPCS: 74177; Q9967

== ENCOUNTER 2021-05-11 11:48 | Outpatient (REF) | payer OTHER, SELFPAY ==
--- NOTE | ~2021-05-11 | XR_ITS ---
EXAMINATION: XR CHEST CLINICAL INFORMATION: Bronchitis area COMPARISON: None TECHNIQUE: 2 views of the chest were obtained. FINDINGS: No significant abnormality is noted involving the heart, lungs, mediastinum, bony thorax or soft tissues. XR/XR chest 2V IMPRESSION: Unremarkable chest examination.
== END 2021-05-11 11:49 | disposition home or self-care (01) ==
LOC: HO.HMGCX 11:48
PROVIDERS: PCP Internal Medicine; Visit Provider Internal Medicine
DX: Z13.89 Encounter for screening for other disorder (principal)
CPT/HCPCS: 71046

== ENCOUNTER 2021-05-12 10:03 | Outpatient (REF) | payer OTHER, SELFPAY ==
[2021-05-12 11:08] LABS: Estimated Average Glucose 108 mg/dL; Hemoglobin A1c % 5.4 %
[2021-05-12 11:33] LABS: Alanine Aminotransferase 37 U/L (0-31); Albumin Level 3.9 g/dL (3.5-5.0); Alkaline Phosphatase 123 U/L (39-117); Anion Gap 13 (12-20); Aspartate Amino Transferase 22 U/L (5-31); Bilirubin Total 0.4 mg/dL (0.0-1.0); Blood Urea Nitrogen 9 mg/dL (9-16); Calcium 9.2 mg/dL (8.4-10.2); Carbon Dioxide 27 mmol/L (22-29); Chloride 107 mmol/L (96-108); Cholesterol 207 mg/dL; Estimated Glomerular Filt Rate > 60; Glucose Fasting 83 mg/dL (60-99); HDL Cholesterol 47 mg/dL; LDL Cholesterol Calculated 138 mg/dl; Potassium 4.1 mmol/L (3.3-5.1); Sodium 143 mmol/L (135-145); Total Protein 7.1 g/dL (6.5-8.0); Triglycerides 111 mg/dL
[2021-05-12 11:43] LABS: TSH reflex Free T4 0.96 uIU/mL (0.32-4.0)
== END 2021-05-12 10:04 | disposition home or self-care (01) ==
LOC: HO.LAB 10:03
PROVIDERS: PCP Internal Medicine; Visit Provider Internal Medicine
DX: Z00.01 Encounter for general adult medical examination with abnormal findings (principal); E78.9 Disorder of lipoprotein metabolism, unspecified; K76.0 Fatty (change of) liver, not elsewhere classified; M79.7 Fibromyalgia; R79.89 Other specified abnormal findings of blood chemistry
CPT/HCPCS: 36415; 80053; 80061; 83036; 84443

== ENCOUNTER 2021-05-25 10:27 | Outpatient (REF) | payer OTHER, SELFPAY ==
--- NOTE | ~2021-05-25 | MM_ITS ---
EXAMINATION: MM SCREENING DIGITAL BREAST TOMOSYNTHESIS, BILATERAL CLINICAL INFORMATION: Screening. Asymptomatic. Age 40. No prior breast imaging. Family history breast cancer, maternal aunt. The lifetime risk of breast cancer based on the Tyrer-Cuzick Model is 11%. COMPARISON: None (current study represents initial baseline exam). TECHNIQUE: Digital breast tomosynthesis is performed in both the craniocaudal and mediolateral oblique views along with computer-aided detection (CAD). Synthesized 2D images are generated from the tomosynthesis. FINDINGS: The breasts are almost entirely fatty (ACR BI-RADS breast composition Category a). There are no significant masses, abnormal calcifications, or other abnormalities. There are multiple round and rim calcifications predominantly posterior medial bilateral breasts, most are dermal. The axilla and skin contours are unremarkable. MM/MM tomosynthesis screening BI IMPRESSION: No mammographic evidence of malignancy. ASSESSMENT: BI-RADS 2: Benign RECOMMENDATION: Routine annual mammography screening. This patient's information was entered into a reminder system with a target due date for their next mammogram.
== END 2021-05-25 10:28 | disposition home or self-care (01) ==
LOC: HO.MAMMO 10:27
PROVIDERS: PCP Internal Medicine; Visit Provider Internal Medicine
DX: Z12.31 Encounter for screening mammogram for malignant neoplasm of breast (principal)
CPT/HCPCS: 77063; 77067

== ENCOUNTER → 2021-05-31 12:51 | Outpatient (BNVA) | payer OTHER, SELFPAY | PROVIDERS: PCP Internal Medicine; Visit Provider Internal Medicine Gastroenterology | CPT/HCPCS: Q3014 ==

== ENCOUNTER 2021-06-01 13:56 | Outpatient (REF) | payer OTHER, SELFPAY ==
[2021-06-01 15:10] LABS: Alanine Aminotransferase 17 U/L (0-31); Albumin Level 4.1 g/dL (3.5-5.0); Alkaline Phosphatase 121 U/L (39-117); Anion Gap 14 (12-20); Aspartate Amino Transferase 14 U/L (5-31); Bilirubin Total 0.4 mg/dL (0.0-1.0); Blood Urea Nitrogen 11 mg/dL (9-16); Calcium 9.1 mg/dL (8.4-10.2); Carbon Dioxide 22 mmol/L (22-29); Chloride 107 mmol/L (96-108); Estimated Glomerular Filt Rate > 60; Glucose Random 74 mg/dL (60-115); Sodium 139 mmol/L (135-145); Total Protein 7.3 g/dL (6.5-8.0)
[2021-06-02 08:44] LABS: HBc Num1 0.07 S/CO (0.00-0.79); HBsAGNum1 0.18 S/CO (0.00-0.99); Hepatitis B Core Antibody Nonreactive (Nonreactive); Hepatitis B Surface Antigen Negative (Negative); ~HepC Num1 0.13 S/CO (0.00-0.79); ~Hepatitis C Antibody Nonreactive (Nonreactive)
[2021-06-02 08:50] LABS: HBS Num1 83.12 mIU/mL (0-7.99); ~Hepatitis B Surface Antibody REACTIVE (Nonreactive)
[2021-06-02 11:37] LABS: Immunoglobulin G 1241 mg/dL (600-1640)
[2021-06-03 09:51] LABS: Hepatitis A Antibody IgM 0.18 Index (0-0.79); ~Hepatitis A Antibody IgM Nonreactive (Nonreactive)
[2021-06-03 12:27] LABS: Mitochondrial Antibodies NEGATIVE (NEGATIVE)
[2021-06-03 13:46] LABS: Alpha 1 Anti-trypsin 178 mg/dL (83-199)
[2021-06-04 15:16] LABS: Transglutaminase Ab IgG 3 U/mL; Transglutaminase IgA 1 U/mL
[2021-06-05 13:12] LABS: Smooth Muscle Antibody <20 U (<20)
[2021-06-06 14:26] LABS: Alk.Phos Iso. Macrohepatic 0 % (<=0); Alk.Phos Isoenzymes Bone 25 % (28-66); Alk.Phos Isoenzymes Intest 0 % (1-24); Alk.Phos Isoenzymes Liver 75 % (25-69); Alk.Phos Isoenzymes Placental 0 % (<=0); Alk.Phos Isoenzymes Total 113 U/L (31-125)
[2021-06-08 00:31] LABS: Soluble Liver Ag Autoantibody <20.1 U (0.0-20.0)
== END 2021-06-01 13:57 | disposition home or self-care (01) ==
LOC: HO.LAB 13:56
PROVIDERS: PCP Internal Medicine; Visit Provider Internal Medicine Gastroenterology
DX: K52.839 Microscopic colitis, unspecified (principal); R94.5 Abnormal results of liver function studies; G89.29 Other chronic pain; R10.33 Periumbilical pain; K75.81 Nonalcoholic steatohepatitis (NASH)
CPT/HCPCS: 36415; 80053; 82085; 82103; 82784; 83516; 83520; 84080; 86255; 86256; 86704; 86706; 86709; 86803; 87340